=== PATIENT | male | born 1990 | race Caucasian/White ===

== ENCOUNTER 2020-11-17 13:14 | Emergency (ER) | payer OTHER, SELFPAY ==
[2020-11-17 13:23] VITALS: BP 151/69; PULSE 60; RESP 16; TEMP 37.1; O2SAT 100
--- NOTE | 2020-11-17 13:29 | ED.SKABFB ---
HPI - Skin/Abscess/Foreign Bdy General Chief complaint: Skin/Abscess/Foreign Body Stated complaint: rash Time Seen by Provider: 11/17/20 13:25 Source: patient and RN notes reviewed Mode of arrival: ambulatory Limitations: no limitations History of Present Illness HPI narrative: 30-year-old male who presents to [facility] with complaints 10 days pain and itching to the mid right back around the lateral rib area with few linear pustules noted for the past 5 days to the lateral rib area. He states that tenderness is mild today but the itching has increased in the past few days, denies any known fevers, chills or sweats. He state that he did have chickenpox as a child but unsure of severity of case. Patient states that he has taken some Ibuprofen for the discomfort. MD complaint: rash Onset (ago): day(s) (5) Location: back (right mid back to lateral chest) Severity: mild Severity scale (1-10): 2 Quality: pruritic Related Data Allergies Allergy/AdvReac Type Severity Reaction Status Date / Time No Known Allergies Allergy Verified 11/17/20 13:23 Review of Systems Review of Systems: Narrative: CONSTITUTIONAL: Denies any known fever, chills, or sweats. EYES: Denies visual changes, redness, or discharge. ENT: Denies rhinorrhea, congestion, sore throat, or otalgia. CARDIOVASCULAR: report right mid back pain along lateral chest pain and pruritus, no palpitations, or edema. RESPIRATORY: Denies cough or dyspnea. GASTROINTESTINAL: Denies abdominal pain, nausea, vomiting, or diarrhea GENITOURINARY: Denies dysuria or hematuria. SKIN: rash or itching.right lateral chest healing linear small pustules MUSCULOSKELETAL: Denieslower back pain, joint pain, or myalgia.discomfort right mid back radiating along lateral chest area where lesions noted. NEUROLOGIC: Denies headache, numbness, or weakness. PSYCHIATRIC: Denies anxiety or depression. All systems reviewed & are unremarkable except as noted in HPI and below PMFSH Past Medical History Medical History (Updated 11/19/20 @ 13:55 by Savannah Garcia NP) Clavicular fracture Femur fracture, left required external fixator and surgical intervention Seasonal allergies Wrist fracture Family History Family History (Updated 11/19/20 @ 13:56 by Savannah Garcia NP) Grandparent Cerebrovascular accident Cancer Sibling Epilepsy Social History Social History (Updated 11/19/20 @ 13:57 by Savannah Garcia NP) Smoking status: Never smoker Alcohol intake: current Alcohol use details: social Substance use: never Living arrangements: with family Gender identity (if verbalized by the patient): Male Comments At time of signature, agree with nursing past medical, surgical, social and family history. There is no relevant family history pertinent to the presenting complaint Exam Narrative: Exam Narrative: GENERAL: Well-appearing, well-nourished, and in no acute distress. HEAD: Normocephalic, atraumatic. EYES: PERRLA and EOMI. ENT: Nares clear, some clear nasal rhinorrhea no epistaxis. Mucous membranes moist.TM's normal with good light reflex, throat pink with no exudates or lesions no tonsil enlargement NECK: Supple. no lymphadenopathy CHEST: Clear to auscultation. No respiratory distress.no tachypnea or accessory muscle use, SAO2 100% on room air HEART: Regular rate and rhythm. No murmur heard. Normal peripheral pulses. ABDOMEN: Soft, nontender, nondistended, normal active bowel sounds. EXTREMITIES: Normal range of motion. No edema. SKIN: Warm, dry, healing linear pustular lesions to lateral right chest itching with mild pain now NEURO: No focal deficits. Alert and oriented x3. Course Vital Signs Vital signs: Vital Signs Temperature 37.1 C 11/17/20 13:23 Pulse Rate 60 11/17/20 13:23 Respiratory Rate 16 11/17/20 13:23 Blood Pressure 151/69 H 11/17/20 13:23 Pulse Oximetry 100 11/17/20 13:23 Temperature 37.1 C 11/17/20 13:23 Pulse Rate 60 11/17/20
== END 2020-11-17 13:56 | disposition home or self-care (01) ==
PROVIDERS: Emergency Provider Registered Nurse; PCP Internal Medicine Infectious Disease
DX: B02.9 Zoster without complications (principal)
CPT/HCPCS: 99213; G0463